=== PATIENT | male | born 1990 | race African-American/Black ===

== ENCOUNTER 2023-08-25 21:21 | Emergency (ER) | payer OTHER ==
[2023-08-25 21:42] VITALS: BP 125/83; PULSE 67; RESP 16; TEMP 98.5; BMI 26.4
== END 2023-08-25 22:36 | disposition home or self-care (01) ==
LOC: FER 21:21
DX: S63.633A Sprain of interphalangeal joint of left middle finger, initial encounter (principal); V89.2XXA Person injured in unspecified motor-vehicle accident, traffic, initial encounter
CPT/HCPCS: 73140-TC-LT-FY; 99283-25